=== PATIENT | male | born 1955 | race Caucasian/White ===

== ENCOUNTER 2022-03-14 04:03 | Emergency (ER) | payer BC ==
[~2022-03-14] VITALS: Ht 175.2 cm; Wt 165.6 kg
[2022-03-14] MEDS ORDERED: MAGNESIUM400 MG PO (04:29)
[2022-03-14] MEDS ORDERED: DOXAZOSIN4 MG PO (04:29)
[2022-03-14] MEDS ORDERED: CYMBALTA60 MG PO (04:29)
[2022-03-14] MEDS ORDERED: NIACIN500 M1 PO (04:30)
[2022-03-14] MEDS ORDERED: B12 ACTIVE1000 MCG PO (04:33)
[2022-03-14 04:55] LABS: BASO % 0.6 % (0.0-1.0); EOS # 0.1 10*3/uL (0.0-0.4); EOS % 1.6 % (1.0-4.0); HEMATOCRIT 38.4 % (42.0-52.0); LYMPH # 0.4 10*3/uL (1.3-4.4); LYMPH % 6.1 % (27.0-41.0); MEAN CELL VOLUME 91.9 fl (80.0-94.0); MEAN CORPUSCULAR HGB 29.2 pg (27.0-31.0); MEAN CORPUSCULAR HGB CONC 31.8 g/dl (33.0-37.0); MEAN PLATELET VOLUME 9.3 fl (9.6-12.3); MONO % 16.2 % (3.0-9.0); NEUT # 4.6 10*3/uL (2.3-7.9); PLATELET COUNT AUTOMATED 182 10*3/uL (130-400); RED BLOOD COUNT 4.18 10*6/uL (4.50-5.90); RED CELL DISTRI WIDTH 14.8 % (0-14.5); WHITE BLOOD COUNT 6.2 10*3/uL (4.8-10.8)
[2022-03-14 05:12] LABS: ALKALINE PHOSPHATASE 80 U/L (46-116); BUN 14 mg/dl (9-23); CHLORIDE 100 mmol/L (98-107); POTASSIUM 4.2 mmol/L (3.4-5.1); SGPT/ALT 50 U/L (10-49); TOTAL PROTEIN 6.8 gm/dL (6.0-8.0)
[2022-03-14] MEDS ORDERED: PREDNISONE20 M1 PO (05:48)
[2022-03-14] MEDS ORDERED: ZITHROMAX250 MG PO (05:48)
== END 2022-03-14 05:50 | disposition home or self-care (01) ==
LOC: ED 04:03
PROVIDERS: Internal Medicine
DX: J40 Bronchitis, not specified as acute or chronic (principal); Z79.899 Other long term (current) drug therapy